=== PATIENT | male | born 1985 | race Caucasian/White ===

== ENCOUNTER → 2018-02-25 | Outpatient (CLI) | payer OTHER ==
[~2018-02-25] MED LIST: IOPAMIDOL (ISOVUE 370) 100 ML BTL IV ONE
== END ==
LOC: FIMAGING 08:03
DX: I71.4 Abdominal aortic aneurysm, without rupture (principal); Q23.1 Congenital insufficiency of aortic valve
CPT/HCPCS: Q9967

== ENCOUNTER → 2018-06-21 | Outpatient (CLI) | payer OTHER | END | disposition home or self-care (01) | LOC: BMCIMAGING 18:32 | PROVIDERS: ATTEND Family Medicine | DX: R07.81 Pleurodynia (principal); S29.9XXA Unspecified injury of thorax, initial encounter; X50.9XXA Other and unspecified overexertion or strenuous movements or postures, initial encounter; Y93.K1 Activity, walking an animal | CPT/HCPCS: 71101-PO ==